=== PATIENT | female | born 1960 ===

== ENCOUNTER 2025-05-01 10:45 | Inpatient (IN) | payer OTHER ==
[~2025-05-01] VITALS: Ht 160 cm; Wt 111.1 kg
[2025-05-02] MEDS ORDERED: ZESTRIL30 MG PO (08:47)
[2025-05-02] MEDS ORDERED: LEVOTHYROXINE25 MCG PO (08:47)
[2025-05-02] MEDS ORDERED: PLAVIX75 MG PO (08:47)
[2025-05-02] MEDS ORDERED: ACID REDUCER20 M1 PO (08:47)
[2025-05-02] MEDS ORDERED: METFORMIN HCL500 M3 PO (08:48)
[2025-05-02] MEDS ORDERED: PEPCID AC20 MG PO (08:48)
[2025-05-02] MEDS ORDERED: NORVASC2.5 M1 PO (08:48)
[2025-05-02 08:49] VITALS: BP 150/65
[2025-05-02] MEDS ORDERED: ATORVASTATIN CA10 MG PO (08:49)
[2025-05-02 08:50] VITALS: BP 160/76
[2025-05-02 09:16] LABS: COVID-19 AG NEGATIVE (NEGATIVE)
[2025-05-02 09:24] LABS: ALT/SGPT 38.0 U/L (12-78); AST/SGOT 21.0 U/L (15-37); BILIRUBIN TOTAL 0.7 mg/dL (0.3-1.2); BUN CREA RATIO 23.0 (7.0-25.0); CREATININE SERUM 0.71 mg/dL (0.55-1.02); GFR 82.62; GLOBULINA 3.1 G/DL (2.4-3.5); GLUCOSE FASTING 110.0 mg/dL (65-100); OSMOLALITY SERUM 287.0 MOSM/KG (275-295)
[2025-05-03] MEDS ORDERED: METRONIDAZOLE/SODIUM CHLORIDE 500 MG/100 ML PIGGYBACK IV ONE (07:08)
[2025-05-03] MEDS ORDERED: POVIDONE-IODINE 118 ML BOTT TOP ONE (07:09)
[2025-05-03] MEDS ORDERED: CEFAZOLIN SODIUM 1,000 MG VIAL ONE (07:09)
[2025-05-03] MEDS ORDERED: THROMBIN,HU/FIBRINOGEN/CALCIUM 10 ML SYRINGE TOP ONE (09:45)
[2025-05-03] MEDS ORDERED: VISTASEAL DUAL APPICATOR 1 EACH APPL TOP ONE (09:45)
[2025-05-03] MEDS ORDERED: SUGAMMADEX SODIUM 200 MG/2 ML VIAL IV ONE ×2 (09:55→10:21)
[2025-05-03] MEDS ORDERED: ONDANSETRON HCL 2 MG/ML VIAL IV PRN (10:00)
[2025-05-03] MEDS ORDERED: 0.9 % SODIUM CHLORIDE 1,000 ML IV SCH (10:00)
[2025-05-03] MEDS ORDERED: KETOROLAC TROMETHAMINE 30 MG VIAL IM SCH (12:00)
[2025-05-03 14:21] LABS: BASO % 0.1 % (0.1-1.2); EOS # 0.00 (0.04-0.54); EOS % 0.0 % (0.7-7.0); LYMPH # 0.82 (1.18-3.74); LYMPH % 7.5 % (19.3-53.1); MEAN PLATELET VOLUME 9.90 fl (9.4-12.4); MONO # 0.46 (0.24-0.82); MONO % 4.2 % (4.7-12.5); NEUT # 9.60 (1.56-6.13); NEUT % 87.9 % (34.0-71.1); RED CELL DISTRIBUTION WIDTH 11.9 % (11.6-14.4)
[2025-05-03 14:58] LABS: BUN CREA RATIO 19.0 (7.0-25.0); CREATININE SERUM 0.63 mg/dL (0.55-1.02); GFR 94.84; GLUCOSE FASTING 120.0 mg/dL (65-100); OSMOLALITY SERUM 288.0 MOSM/KG (275-295)
[2025-05-03] MEDS ORDERED: DEXTROSE 50 % IN WATER 0.5 G/ML DISP.SYRIN IV PRN (15:00)
[2025-05-03] MEDS ORDERED: ENALAPRILAT DIHYDRATE 2.5 MG/2 ML VIAL IV PRN (15:00)
[2025-05-03] MEDS ORDERED: INSULIN LISPRO 1,000 UNIT/10 ML UNITS SUBCUTANEO PRN (15:00)
[2025-05-03] MEDS ORDERED: GABAPENTIN 300 MG CAPSULE PO SCH (17:00)
[2025-05-03] MEDS ORDERED: METRONIDAZOLE/SODIUM CHLORIDE 500 MG/100 ML PIGGYBACK IV SCH (17:00)
[2025-05-03 19:23] VITALS: BP 160/76
[2025-05-03] MEDS ORDERED: FAMOTIDINE/PF 20 MG in 0.9 % SODIUM CHLORIDE 8 ML IV PUSH SCH (21:00)
[2025-05-03] MEDS ORDERED: CEFAZOLIN SODIUM 1,000 MG VIAL IV SCH (21:00)
[2025-05-04] VITALS: BP 116/68
[2025-05-04] MEDS ORDERED: LEVOTHYROXINE SODIUM 25 MCG TABLET PO SCH (06:00)
[2025-05-04 08:16] VITALS: BP 110/67; O2SAT 99
[2025-05-04] MEDS ORDERED: AMLODIPINE BESYLATE 2.5 MG TABLET PO SCH ×2 (09:00)
[2025-05-04] MEDS ORDERED: ENOXAPARIN SODIUM 40 MG/0.4 ML SYRINGE SUBCUTANEO SCH (09:00)
[2025-05-04] MEDS ORDERED: LISINOPRIL 10 MG TABLET PO SCH (09:00)
[2025-05-04 09:09] LABS: BASO % 0.1 % (0.1-1.2); EOS # 0.03 (0.04-0.54); EOS % 0.4 % (0.7-7.0); LYMPH # 0.98 (1.18-3.74); LYMPH % 13.9 % (19.3-53.1); MEAN PLATELET VOLUME 10.00 fl (9.4-12.4); MONO # 0.57 (0.24-0.82); MONO % 8.1 % (4.7-12.5); NEUT # 5.46 (1.56-6.13); NEUT % 77.4 % (34.0-71.1); RED CELL DISTRIBUTION WIDTH 12.1 % (11.6-14.4)
[2025-05-04 10:11] LABS: BUN CREA RATIO 14.0 (7.0-25.0); CREATININE SERUM 0.58 mg/dL (0.55-1.02); GFR 104.33; GLUCOSE FASTING 117.0 mg/dL (65-100); OSMOLALITY SERUM 288.0 MOSM/KG (275-295)
== END 2025-05-04 15:50 | disposition home or self-care (01) | DRG 741 ==
LOC: O/R 05-03 08:00 → OB/GYN 05-03 08:00 → SURH 05-03 10:45 → O/R 05-03 13:11 → OB/GYN 05-03 14:47
PROVIDERS: ADMIT Obstetrics & Gynecology Gynecologic Oncology; ATTEND Obstetrics & Gynecology Gynecologic Oncology
PROC: 0UT74ZZ Resection of Bilateral Fallopian Tubes, Percutaneous Endoscopic Approach (ICD-10-PCS; 2025-05-03)
PROC: 0UT24ZZ Resection of Bilateral Ovaries, Percutaneous Endoscopic Approach (ICD-10-PCS; 2025-05-03)
PROC: 07BC4ZZ Excision of Pelvis Lymphatic, Percutaneous Endoscopic Approach (ICD-10-PCS; 2025-05-03)
PROC: 0DNW4ZZ Release Peritoneum, Percutaneous Endoscopic Approach (ICD-10-PCS; 2025-05-03)
PROC: 8E0W4CZ Robotic Assisted Procedure of Trunk Region, Percutaneous Endoscopic Approach (ICD-10-PCS; 2025-05-03)
PROC: 0UT94ZZ Resection of Uterus, Percutaneous Endoscopic Approach (ICD-10-PCS; principal; 2025-05-03 13:00)
DX: C54.1 Malignant neoplasm of endometrium (principal); N72 Inflammatory disease of cervix uteri; D25.1 Intramural leiomyoma of uterus; N84.0 Polyp of corpus uteri
CPT/HCPCS: 58548; S2900